=== PATIENT | female | born 1965 | race Hispanic/Latino ===

== ENCOUNTER 2018-06-20 16:54 | Emergency (ER) | payer OTHER ==
[~2018-06-20] VITALS: Ht 152.4 cm; Wt 61.2 kg
[2018-06-20] MEDS ORDERED: TETANUS/DIPHTHERIA TOX ADULT 0.5 ML SYR IM ONE (17:15)
== END 2018-06-20 17:30 | disposition home or self-care (01) ==
LOC: ER 16:54
DX: S51.812A Laceration without foreign body of left forearm, initial encounter (principal); W26.0XXA Contact with knife, initial encounter; Y92.008 Other place in unspecified non-institutional (private) residence as the place of occurrence of the external cause; D69.3 Immune thrombocytopenic purpura
CPT/HCPCS: 90471; 90714; 99283